=== PATIENT | male | born 1970 | race Caucasian/White ===

== ENCOUNTER 2020-05-04 14:19 | Emergency (ER) | payer BC ==
[2020-05-04] MEDS ORDERED: TETANUS & DIPHTHERIA TOX,ADULT 0.5 ML VIAL ONE (16:02)
[2020-05-04] MEDS ORDERED: LIDOCAINE 1% MPF 30 ML VIAL ONE (16:02)
[2020-05-04] MEDS ORDERED: LIDOCAINE 1% 20 ML MDV ONE (16:03)
--- NOTE | 2020-05-04 17:02 | EDPHYS ---
Physician Documentation [facility] Name: Gerardo Gutierrez Jr Age: 50 yrs Sex: Male : 1970 Arrival Date: 05/04/2020 Time: 14:23 Bed 15 Private MD: ED Physician Jorje Winslow HPI: 05/04 14:53 This 50 yrs old Male presents to ER via Ambulatory with complaints of jmm Laceration To Hand. 14:53 The patient or guardian reports injury. Onset: The symptoms/episode began/occurred jmm acutely, just prior to arrival. Associated signs and symptoms: Pertinent negatives: cyanosis distally, decreased sensation distally, fever, nausea, numbness distally, tingling distally, vomiting. The patient has experienced a previous episode. Patient states he accidently cut his right hand on a candelaria cutter. Not utd on tetanus immunization. Historical: - Allergies: 14:29 No Known Allergies; ll1 - PMHx: 14:29 None; ll1 - PSHx: 14:29 nasal sx-deviated septum; Appendectomy; ll1 - Immunization history:: Flu vaccine is not up to date. Last tetanus immunization: > 10 years ago. - Social history:: Smoking status: Patient/guardian denies using tobacco, the patient reports quitting approximately 5 years ago. ROS: 14:53 Constitutional: Negative for fever, chills, and weight loss, Cardiovascular: Negative jmm for chest pain, palpitations, and edema, Respiratory: Negative for shortness of breath, cough, wheezing, and pleuritic chest pain. 14:53 MS/extremity: Positive for injury or acute deformity, laceration. 14:53 Skin: Positive for laceration(s). 14:53 All other systems are negative. Exam: 14:53 Constitutional: This is a well developed, well nourished patient who is awake, alert, jmm and in no acute distress. Head/Face: atraumatic. Eyes: EOMI, no conjunctival erythema appreciated ENT: Moist Mucus Membranes Neck: Trachea midline, Supple Chest/axilla: Normal chest wall appearance and motion. Cardiovascular: Regular rate and rhythm. No edema appreciated Respiratory: Normal respirations, no respiratory distress appreciated Abdomen/GI: Non distended, soft Back: Normal ROM 14:53 Skin: 3 2 cm lacerations noted to the palm of the right hand. 14:53 Neuro: Orientation: is normal, Mentation: is normal, Memory: is normal. 14:53 Psych: Behavior/mood is pleasant, cooperative. Vital Signs: 14:29 BP 169 / 103; Pulse 78; Resp 16; Temp 97.9; Pulse Ox 96% on R/A; Weight 92.99 kg; ll1 Height 6 ft. 2 in. (187.96 cm); Pain 1/10; 14:46 BP 157 / 99; Pulse 70; Resp 14; Pulse Ox 100% on R/A; vg1 15:30 BP 152 / 90; Pulse 72; Resp 16; Pulse Ox 99% on R/A; vg1 17:00 BP 152 / 90; Pulse 74; Resp 18; Pulse Ox 100% on R/A; vg1 14:29 Body Mass Index 26.32 (92.99 kg, 187.96 cm) ll1 Laceration: 16:59 Wound Repair of 2cm ( 0.8in ) subcutaneous laceration to right hand. Distal jmm neuro/vascular/tendon intact. Anesthesia: Local anesthetic administered with 2 mls of 1% lidocaine. Wound prep: Simple cleansing with betadine by me. Skin closed with 2 5-0 Prolene using simple sutures and sterile technique. Patient tolerated well. 16:59 Wound Repair of 2cm ( 0.8in ) laceration to right hand. Distal neuro/vascular/tendon jmm intact. Anesthesia: Local anesthetic administered with 1 mls of 1% lidocaine. Wound prep: Simple cleansing with betadine by me. Skin closed with 2 5-0 Prolene using simple sutures and sterile technique. Patient tolerated well. 16:59 Wound Repair of 2cm ( 0.8in ) subcutaneous laceration to right hand. Distal jmm neuro/vascular/tendon intact. Anesthesia: Local anesthetic administered with 1 mls of 1% lidocaine. Wound prep: Simple cleansing with betadine by me. Skin closed with 2 5-0 Prolene using simple sutures and sterile technique. Patient tolerated well. MDM: 14:53 Patient medically screened. [facility] 16:59 Data reviewed: vital signs, nurses notes. Counseling: I had a detailed discussion with [facility] the patient and/or guardian regarding: the historical points, exam findings, and any diagnostic results supporting the discharge/admit diagnosis, the need for outpatient follow up, to return to the emergency department if symptoms worsen or persist or if there are any questions or concerns that arise at home. ED course: Patient given wound infection return precautions. patient understood and agrees with the plan of care. . Administered Medications: 15:57 Drug: Tetanus-Diphtheria Toxoid Adult 0.5 ml {[employer] Supervisor: Prompt[employer]. Exp: vg1 07/05/2021. Lot #: [id number]. } Route: IM; Site: right deltoid; 17:31 Follow up: Response: No adverse reaction vg1 16:21 Drug: Lidocaine (1 %) 20 mg Volume: 20 ml; Route: Infiltration; vg1 17:32 Follow up: Response: No adverse reaction vg1 Disposition: 05/04/20 17:01 Discharged to Home. Impression: Hand Lacerations. - Condition is Stable. - Discharge Instructions: Laceration Care, Adult. - Medication Reconciliation Form, Thank You Letter, Antibiotic Education, Prescription Opioid Use form. - Follow up: Private Physician; When: 1 week; Reason: Recheck today's complaints, Continuance of care, Staple/Suture removal, Re-evaluation by your physician. Addendum: 05/09/2020 19:21 Co-signature as Attending Physician, Jorje Winslow MD I agree with the assessment and t w4 plan of care. Signatures: Sanket Fitzgerald PA PA jmm Wadley, Terrence, MD MD tw4 Zuly Wang RN RN vg1 Claire Bahena RN RN ll1 Corrections: (The following items were deleted from the chart) 05/04 17:31 17:01 05/04/2020 17:01 Discharged to Home. Impression: Hand Lacerations. Condition is vg1 Stable. Forms are Medication Reconciliation Form, Thank You Letter, Antibiotic Education, Prescription Opioid Use. Follow up: Private Physician; When: 1 week; Reason: Recheck today's complaints, Continuance of care, Staple/Suture removal, Re-evaluation by your physician. awa
--- NOTE | 2020-05-04 17:02 | ER ---
Nurse's Notes [facility] Name: Gerardo Gutierrez Jr Age: 50 yrs Sex: Male : 1970 Arrival Date: 05/04/2020 Time: 14:23 Bed 15 Private MD: Diagnosis: Hand Lacerations Presentation: 05/04 14:29 Chief complaint: Patient states: R hand laceration 3 small lacerations on palm area. 1 ll1 slightly larger laceration to outer aspect of palm area. Bleeding controlled. Coronavirus screen: Client denies travel out of the [place] in the last 14 days. At this time, the client does not indicate any symptoms associated with coronavirus-19. Ebola Screen: Patient denies travel to an Ebola-affected area in the 21 days before illness onset. Complicating Factors: There are no complicating factors for this patient. Initial Sepsis Screen: Does the patient meet any 2 criteria? No. Patient's initial sepsis screen is negative. Does the patient have a suspected source of infection? Yes: Skin breakdown/wound. Risk Assessment: Do you want to hurt yourself or someone else? Patient reports no desire to harm self or others. Onset of symptoms was May 04, 2020. 14:29 Method Of Arrival: Ambulatory ll1 14:29 Acuity: HUYEN 4 ll1 Historical: - Allergies: 14:29 No Known Allergies; ll1 - PMHx: 14:29 None; ll1 - PSHx: 14:29 nasal sx-deviated septum; Appendectomy; ll1 - Immunization history:: Flu vaccine is not up to date. Last tetanus immunization: > 10 years ago. - Social history:: Smoking status: Patient/guardian denies using tobacco, the patient reports quitting approximately 5 years ago. Screenin:47 Abuse screen: Denies threats or abuse. Nutritional screening: No deficits noted. vg1 Tuberculosis screening: No symptoms or risk factors identified. Fall Risk No fall in past 12 months (0 pts). No secondary diagnosis (0 pts). No IV (0 pts). Ambulatory Aid- None/Bed Rest/Nurse Assist (0 pts). Gait- Normal/Bed Rest/Wheelchair (0 pts) Mental Status- Oriented to own ability (0 pts). Total Tang Fall Scale indicates No Risk (0-24 pts). Assessment: 14:44 General: Appears in no apparent distress. comfortable, Behavior is calm, cooperative. vg1 Pain: Complains of pain in right hand Pain currently is 1 out of 10 on a pain scale. Pain began 1 hour ago. Neuro: Level of Consciousness is awake, alert, obeys commands, Oriented to person, place, time, situation. Cardiovascular: Patient's skin is warm and dry. Respiratory: Airway is patent Respiratory effort is even, unlabored. GI: No signs and/or symptoms were reported involving the gastrointestinal system. : No signs and/or symptoms were reported regarding the genitourinary system. EENT: No signs and/or symptoms were reported regarding the EENT system. Derm: Wound noted right hand. Musculoskeletal: Circulation, motion, and sensation intact. Injury Description: Laceration sustained to palm side of right hand is clean, not bleeding. 15:56 Reassessment: Patient appears in no apparent distress at this time. No changes from vg1 previously documented assessment. Patient and/or family updated on plan of care and expected duration. Pain level reassessed. Patient is alert, oriented x 3, equal unlabored respirations, skin warm/dry/pink. 16:59 Reassessment: Patient appears in no apparent distress at this time. No changes from vg1 previously documented assessment. Patient and/or family updated on plan of care and expected duration. Pain level reassessed. Patient is alert, oriented x 3, equal unlabored respirations, skin warm/dry/pink. Patient states feeling better. Vital Signs: 14:29 BP 169 / 103; Pulse 78; Resp 16; Temp 97.9; Pulse Ox 96% on R/A; Weight 92.99 kg; ll1 Height 6 ft. 2 in. (187.96 cm); Pain 1/10; 14:46 BP 157 / 99; Pulse 70; Resp 14; Pulse Ox 100% on R/A; vg1 15:30 BP 152 / 90; Pulse 72; Resp 16; Pulse Ox 99% on R/A; vg1 17:00 BP 152 / 90; Pulse 74; Resp 18; Pulse Ox 100% on R/A; vg1 14:29 Body Mass Index 26.32 (92.99 kg, 187.96 cm) ll1 ED Course: 14:23 Patient arrived in ED. ds1 14:28 Arm band placed on Patient placed in an exam room, on a stretcher. ll1 14:31 Triage completed. ll1 14:38 Sanket Fitzgerald PA is PHCP. [facility] 14:38 Jorje Winslow MD is Attending Physician. awa 14:39 Zuly Wang, RN is Primary Nurse. vg1 14:47 Patient has correct armband on for positive identification. Bed in low position. Call vg1 light in reach. 17:29 Dressings: Adaptic non-adherent dressing. Wound care: to laceration located on right jp3 hand was cleaned with Betadine, irrigated with normal saline, dressed with Neosporin, Patient tolerated well. 17:31 No provider procedures requiring assistance completed. Patient did not have IV access vg1 during this emergency room visit. Administered Medications: 15:57 Drug: Tetanus-Diphtheria Toxoid Adult 0.5 ml {[employer] Physician: Quantified Skin. Exp: vg1 07/05/2021. Lot #: [id number]. } Route: IM; Site: right deltoid; 17:31 Follow up: Response: No adverse reaction vg1 16:21 Drug: Lidocaine (1 %) 20 mg Volume: 20 ml; Route: Infiltration; vg1 17:32 Follow up: Response: No adverse reaction vg1 Outcome: 17:01 Discharge ordered by . [facility] 17:31 Discharged to home ambulatory. vg1 17:31 Condition: stable 17:31 Discharge instructions given to patient, Instructed on discharge instructions, follow up and referral plans. Demonstrated understanding of instructions, follow-up care. 17:31 Patient left the ED. vg1 Signatures: Sanket Fitzgerald PA PA jmm Sanford, Demi ds1 George Scott jp3 Zuly Wang, RN RN vg1 Claire Bahena, MIKE RN ll1
[2020-05-04 17:43] VITALS: TEMP 97.9
[2020-05-04 17:45] VITALS: BP 152/90
[2020-05-04 17:46] VITALS: O2SAT 100
== END 2020-05-04 17:31 | disposition home or self-care (01) ==
LOC: ER 14:19
PROC: 0JQJ0ZZ Repair Right Hand Subcutaneous Tissue and Fascia, Open Approach (ICD-10-PCS; principal; 2020-05-04)
DX: S61.411A Laceration without foreign body of right hand, initial encounter (principal); W45.8XXA Other foreign body or object entering through skin, initial encounter; Y93.9 Activity, unspecified; Y92.9 Unspecified place or not applicable; Z23 Encounter for immunization
CPT/HCPCS: 90471; 90714; 99284